=== PATIENT | male | born 1970 | race Caucasian/White ===

== ENCOUNTER → 2021-10-28 | Day surgery (SDC) | payer BC ==
[2021-10-26 13:38] VITALS: BMI 20.8
[~2021-10-28] MED LIST: LIDOCAINE 1% (10MG/ML) FOR IV START INTRADERMA PRN; LIDOCAINE 1% INJ 10MG/ML (20 ML MDV) ONE; PROPOFOL 10 MG/ML 20 ML VIAL IV ONE
[2021-10-28 09:02] VITALS: TEMP 97
[2021-10-28] MEDS: LACTATED RINGERS 1,000 ML IV SCH ×2 (09:08→09:23)
--- NOTE | 2021-10-28 09:29 | P.GSHP ---
History of Present Illness H&P Date: 10/28/21 Chief Complaint: GERD This a 51-year-old male who has history of GERD. Patient's today for EGD. Past Medical History Past Medical History: GERD/Reflux Additional Past Medical History / Comment(s): ABD PAIN History of Any Multi-Drug Resistant Organisms: None Reported Past Surgical History: Tonsillectomy Additional Past Surgical History / Comment(s): tonsills as child, colonoscopy Past Anesthesia/Blood Transfusion Reactions: No Reported Reaction Past Psychological History: Anxiety, Depression Smoking Status: Former smoker Past Alcohol Use History: Daily Additional Past Alcohol Use History / Comment(s): quit smoking 2 years ago, vaped and then quit vaping also. drinks 3 cases of beer / week. Past Drug Use History: Marijuana Additional Drug Use History / Comment(s): no current marijuana - Past Family History Mother Family Medical History: Cancer Additional Family Medical History / Comment(s): ovarian cancer Medications and Allergies Home Medications Medication Instructions Recorded Confirmed Type Atorvastatin [Lipitor] 10 mg PO DAILY@1400 10/26/21 10/28/21 History Escitalopram [Lexapro] 20 mg PO DAILY@1400 10/26/21 10/28/21 History Sucralfate [Carafate] 1 gm PO BID 10/26/21 10/28/21 History Allergies Allergy/AdvReac Type Severity Reaction Status Date / Time No Known Allergies Allergy Verified 10/28/21 08:58 Surgical - Exam Vital Signs Temp Pulse Resp BP Pulse Ox 97.0 F L 93 18 142/85 97 10/28/21 09:01 10/28/21 09:01 10/28/21 09:01 10/28/21 09:01 10/28/21 09:01 - General well developed, well nourished, no distress - Eyes PERRL - ENT normal pinna - Neck no masses - Respiratory normal expansion - Cardiovascular Rhythm: regular - Abdomen Abdomen: soft, non tender Assessment and Plan Assessment: GERD. We'll perform EGD.
--- NOTE | 2021-10-28 09:34 | P.OP ---
Date of Procedure: 10/28/21 Preoperative Diagnosis: GERD Postoperative Diagnosis: Antral gastritis Sliding hiatal hernia Mild esophagitis Procedure(s) Performed: EGD Anesthesia: MAC Surgeon: Holland John Pathology: other (Antrum, esophagus) Condition: stable Disposition: PACU Description of Procedure: The patient's placed on the endoscopy table in the lateral position. He received IV sedation. The gastroscope placed oropharynx passed in the esophagus and stomach. Scope was then placed through the pylorus. The first and second portion of the duodenum appeared normal. Scope was then brought back the antrum this was minimal inflamed. Biopsies performed. The scope was then retroflexed and the remainder of the stomach appeared normal. There was a small sliding hiatal hernia. The GE junction was at 39 cm. The distal esophagus appeared minimally inflamed a biopsies performed. The proximal esophagus appeared norm al. Scope withdrawn for patient.
[2021-10-28 09:42] VITALS: RESP 16
[2021-10-28 09:54] VITALS: BP 134/91; PULSE 59
== END | disposition home or self-care (01) ==
LOC: ORWHC2ENDO 08:30
PROVIDERS: ATTEND Surgery
DX: K29.60 Other gastritis without bleeding (principal); K44.9 Diaphragmatic hernia without obstruction or gangrene; K20.90 Esophagitis, unspecified without bleeding; E78.5 Hyperlipidemia, unspecified; F41.9 Anxiety disorder, unspecified; F32.A Depression, unspecified; K21.9 Gastro-esophageal reflux disease without esophagitis
CPT/HCPCS: 43239; J2001; J2704; 88305; 88342

== ENCOUNTER → 2021-11-23 | Outpatient (CLI) | payer BC ==
[2021-11-24 00:03] LABS: Basophils % (A) 1.2 %; Eosinophils # (A) 0.07 X 10*3/uL (0.04-0.35); Eosinophils % (A) 0.9 %; HCT 44.8 % (39.6-50.0); HGB 14.5 g/dL (13.0-17.0); Immature Grans, Automated 0.4 %; Lymphocytes # (A) 2.29 X 10*3/uL (0.90-5.00); Lymphocytes % (A) 28.3 %; MCH 29.6 pg (27.0-32.0); MCHC 32.4 g/dL (32.0-37.0); MCV 91.4 fL (80.0-97.0); Mean Platelet Volume 9.9 fL (9.5-12.2); Monocytes # (A) 0.96 X 10*3/uL (0.20-1.00); Monocytes % (A) 11.9 %; NRBC Per 100 WBC 0 /100 WBCS (0.0-0.0); Neutrophils # (A) 4.64 X 10*3/uL (1.80-7.70); Neutrophils % (A) 57.3 %; Platelet Count 265 X 10*3/uL (140-440); RDW 14.1 % (11.5-14.5); WBC 8.09 X 10*3/uL (4.50-10.00)
== END | disposition home or self-care (01) ==
LOC: LABPAT 14:52
PROVIDERS: ATTEND Surgery
DX: Z01.812 Encounter for preprocedural laboratory examination (principal)
CPT/HCPCS: 85025; 93005